=== PATIENT | female | born 1995 | race Caucasian/White ===

== ENCOUNTER 2021-04-04 21:25 | Emergency (ER) | payer OTHER ==
[~2021-04-04 21:25] MED LIST: LODINE CAP 300300 MG PO; PENVEE K 500 M500 MG PO
[2021-04-04] MEDS ORDERED: AUGMENTIN 875-1 EACH PO (23:22)
[2021-04-04] MEDS ORDERED: ZOFRAN4 MG PO (23:44)
== END 2021-04-04 23:59 | disposition home or self-care (01) ==
LOC: ER1 21:25
DX: K02.9 Dental caries, unspecified (principal); E03.9 Hypothyroidism, unspecified; F17.210 Nicotine dependence, cigarettes, uncomplicated; K21.9 Gastro-esophageal reflux disease without esophagitis
CPT/HCPCS: 99282

== ENCOUNTER → 2021-05-04 | Outpatient (CLI) | payer OTHER ==
[~2021-05-04] MED LIST changes: +AUGMENTIN 875-1 EACH PO; +ZOFRAN4 MG PO
== END ==
LOC: KOH-I 10:00 → US 10:00 → KOH-I 14:45
DX: E04.1 Nontoxic single thyroid nodule (principal); R10.9 Unspecified abdominal pain; K59.00 Constipation, unspecified; R19.7 Diarrhea, unspecified; R11.2 Nausea with vomiting, unspecified
CPT/HCPCS: 76536

== ENCOUNTER 2021-08-31 20:00 | Emergency (ER) | payer OTHER ==
[2021-08-31 21:05] LABS: HEMOGLOBIN 13.5 gm/dl (12.3-15.3); RED BLOOD COUNT 4.48 M/UL (4.00-5.10); WHITE BLOOD COUNT 5.9 K/UL (4.5-11.0)
[2021-08-31 21:21] LABS: BUN/CREATININE RATIO 11 (0-10)
[2021-08-31] MEDS ORDERED: CIPRO500 MG PO (22:23)
[2021-08-31] MEDS ORDERED: FLAGYL500 MG PO (22:23)
== END 2021-08-31 23:58 | disposition home or self-care (01) ==
LOC: ER1 20:00
PROVIDERS: Emergency Medicine
DX: K52.9 Noninfective gastroenteritis and colitis, unspecified (principal); F17.200 Nicotine dependence, unspecified, uncomplicated; Z20.822 Contact with and (suspected) exposure to COVID-19
CPT/HCPCS: 80053; 81001; 83690; 84703; 85025; 96374; 96375; 96376; 99284; J2270; J2405; Q9967; U0002

== ENCOUNTER 2021-09-24 19:23 | Emergency (ER) | payer OTHER ==
[~2021-09-24 19:23] MED LIST changes: +CIPRO500 MG PO; +FLAGYL500 MG PO
== END 2021-09-24 22:35 | disposition left against medical advice (07) ==
LOC: ER1 19:23
DX: Z53.21 Procedure and treatment not carried out due to patient leaving prior to being seen by health care provider (principal)
CPT/HCPCS: 73610; 73630

== ENCOUNTER → 2021-11-18 | Outpatient (CLI) | payer OTHER | LOC: EMI 11:03 | DX: G44.89 Other headache syndrome (principal); G43.009 Migraine without aura, not intractable, without status migrainosus; G40.909 Epilepsy, unspecified, not intractable, without status epilepticus | CPT/HCPCS: 70551 ==

== ENCOUNTER 2021-11-23 03:08 | Emergency (ER) | payer OTHER | END 2021-11-23 07:50 | disposition left against medical advice (07) | LOC: ER1 03:08 | DX: Z53.21 Procedure and treatment not carried out due to patient leaving prior to being seen by health care provider (principal) ==

== ENCOUNTER 2022-06-25 22:39 | Emergency (ER) | payer OTHER | END 2022-06-26 03:08 | disposition left against medical advice (07) | LOC: ER1 22:39 | DX: Z53.21 Procedure and treatment not carried out due to patient leaving prior to being seen by health care provider (principal) ==